=== PATIENT | male | born 1995 ===

== ENCOUNTER 2018-05-01 01:42 | Emergency (ER) | payer OTHER ==
[2018-05-01 02:07] VITALS: RESP 18; TEMP 98.1
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
[2018-05-01 02:34] LABS: BASO # 0.02 K/mm3 (0.0-2.0); BASO % 0.2 % (0.0-3.0); EOS # 0.1 (0.0-0.7); EOS % 0.8 % (1.5-5.0); GRAN # 5.97 (1.4-6.5); GRAN % 57.5 % (50.0-68.0); HEMOGLOBIN 16.2 g/dL (14.0-18.0); LYMPH # 3.7 (1.2-3.4); LYMPH % 35.8 % (22.0-35.0); MEAN CELL VOLUME 83.6 fl (80.0-105.0); MEAN CORPUSCULAR HEMOGLOBIN 28.9 pg (25.0-35.0); MEAN CORPUSCULAR HGB CONC 34.5 g/dl (31.0-37.0); MEAN PLATELET VOLUME 12.4 fl (7.0-11.0); MONO # 0.6 (0.1-0.6); MONO % 5.7 % (1.0-6.0); RBC 5.61 10^6/uL (3.5-6.1); RED CELL DISTRIBUTION WIDTH 13.8 % (11.5-14.5); WHITE BLOOD COUNT 10.4 10^3/ul (4.5-11.0)
[2018-05-01 02:58] LABS: ALB/GLOB RATIO 1.4 (1.1-1.8); ALBUMIN 4.6 g/dL (3.0-4.8); CALCIUM 9.6 mg/dL (8.4-10.5); GFR AFRICAN-AMERICAN > 60; GFR NON-AFRICAN AMERICAN > 60
[2018-05-01 03:16] LABS: TROPONIN I < 0.01 ng/mL
[2018-05-01 03:20] LABS: ALT/SGPT 41 U/L (7-56); AST/SGOT 37 U/L (17-59); BLOOD UREA NITROGEN 13 mg/dL (7-21)
[2018-05-01 08:19] VITALS: BP 110/66; PULSE 84; O2SAT 98
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
--- NOTE | 2018-05-01 12:11 | CARD ---
APPROVED REPORT Date of service: 05/01/2018 EKG Measurement Heart [id number] <Conclusion> Sinus tachycardia Otherwise normal ECG
== END 2018-05-01 04:20 | disposition home or self-care (01) ==
LOC: ED 01:42 → MERGE 01:42 → ED 04:20
DX: S20.219A Contusion of unspecified front wall of thorax, initial encounter (principal); V49.9XXA Car occupant (driver) (passenger) injured in unspecified traffic accident, initial encounter; W22.12XA Striking against or struck by front passenger side automobile airbag, initial encounter; Y92.410 Unspecified street and highway as the place of occurrence of the external cause
CPT/HCPCS: 71250; 80053; 82550; 83615; 83735; 84484; 85025; 93005; 96374; 99284; J1885